=== PATIENT | female | born 1970 | race African-American/Black ===

== ENCOUNTER 2016-09-10 05:54 | Emergency (ER) | payer OTHER ==
[~2016-09-10] VITALS: Ht 162.6 cm; Wt 69.9 kg
[2016-09-10 06:03] VITALS: BP 99/74
== END 2016-09-10 08:05 | disposition home or self-care (01) ==
LOC: ER 05:57
DX: S02.2XXA Fracture of nasal bones, initial encounter for closed fracture (principal); S49.92XA Unspecified injury of left shoulder and upper arm, initial encounter; D64.9 Anemia, unspecified; V43.52XA Car driver injured in collision with other type car in traffic accident, initial encounter; Y93.89 Activity, other specified; Y92.488 Other paved roadways as the place of occurrence of the external cause; Y99.8 Other external cause status
CPT/HCPCS: 70160-TC; A4606; Z7610

== ENCOUNTER 2016-09-18 08:10 | Emergency (ER) | payer OTHER ==
[~2016-09-18] VITALS: Ht 162.6 cm; Wt 69.9 kg
[2016-09-18 08:18] VITALS: BP 19/99
[2016-09-18] MEDS ORDERED: IBUPROFEN 600 MG TABLET PO ONE ×2 (08:29→08:30)
== END 2016-09-18 09:21 | disposition home or self-care (01) ==
LOC: ER 08:15
DX: M54.2 Cervicalgia (principal); M25.512 Pain in left shoulder; D64.9 Anemia, unspecified; F17.200 Nicotine dependence, unspecified, uncomplicated
CPT/HCPCS: A4606; Z7610

== ENCOUNTER 2016-10-07 08:21 | Emergency (ER) | payer OTHER ==
[~2016-10-07] VITALS: Ht 162.6 cm; Wt 65.8 kg
[2016-10-07 08:21] VITALS: BP 121/79
== END 2016-10-07 09:33 | disposition home or self-care (01) ==
LOC: ER 08:22
DX: M25.512 Pain in left shoulder (principal); D64.9 Anemia, unspecified; F17.200 Nicotine dependence, unspecified, uncomplicated
CPT/HCPCS: 73030-TC; A4606; Z7610

== ENCOUNTER 2016-12-20 09:41 | Emergency (ER) | payer OTHER ==
[~2016-12-20] VITALS: Ht 162.6 cm; Wt 65.8 kg
[2016-12-20 10:33] LABS: BASOPHILS # (AUTO) 0.1 /CMM (0.0-0.2); EOSINOPHILS % (AUTO) 0.3 % (0.0-6.0); HEMATOCRIT 33 % (33-45); HEMOGLOBIN 11.2 g/dL (11.5-14.8); LYMPHOCYTES # (AUTO) 1.7 /CMM (0.8-4.8); MEAN CORPUSCULAR HEMOGLOBIN 31 PG (26.0-33.0); MEAN CORPUSCULAR HGB CONC 34 g/dl (31.0-36.0); MEAN CORPUSCULAR VOLUME 89 fL (82-100); MONOCYTES # (AUTO) 0.2 /CMM (0.1-1.30); MONOCYTES % (AUTO) 3.8 % (2.0-12.0); NEUTROPHILS # (AUTO) 3.6 /CMM (1.8-8.9); NEUTROPHILS % (AUTO) 64.9 % (43.0-81.0); PLATELET COUNT (AUTO) 298 /CMM (150-450); RDW COEFFICIENT OF VARIATION 15.1 (11.5-15.0); RED BLOOD CELL COUNT(AUTO) 3.65 MIL/uL (4.0-5.2); WHITE BLOOD COUNT (AUTO) 5.6 K/uL (4.3-11.0)
[2016-12-20 10:36] LABS: CALCIUM, SERUM 8.9 mg/dL (8.5-10.1); CARBON DIOXIDE 27 mmol/L (21-32); CHLORIDE 107 mmol/L (98-107); CREATININE 0.9 mg/dL (0.6-1.3); GLUCOSE 88 mg/dL (74-106); POTASSIUM 4.2 mmol/L (3.5-5.1); SODIUM SERUM 139 mmol/L (136-145); UREA NITROGEN, BLOOD 6 mg/dL (7-18)
[2016-12-20 10:44] LABS: TROPONIN I < 0.017 ng/mL (0.00-0.056)
--- NOTE | 2016-12-20 11:11 | NUR ---
REPORT RECEIVED FROM JAN SALAZAR FOR [facility]ANE. NAD NOTED. RESTING COMFORTABLY.
--- NOTE | 2016-12-20 11:28 | NUR ---
IV removed. Catheter intact and site benign. Pressure and 4x4 applied to site. No bleeding noted.
--- NOTE | 2016-12-20 11:39 | NUR ---
Patient discharged to home in stable condition. Written and verbal after care instructions given by MD. Patient verbalizes understanding of instruction.
[2016-12-20 11:40] VITALS: BP 103/77
== END 2016-12-20 11:41 | disposition home or self-care (01) ==
LOC: ER 09:42
DX: R07.89 Other chest pain (principal); N63 Unspecified lump in breast; F17.200 Nicotine dependence, unspecified, uncomplicated; D64.9 Anemia, unspecified
CPT/HCPCS: 36415; 71010-TC; 80048-TC; 84484-TC; 85025-TC; A4606; Z7610

== ENCOUNTER 2017-01-21 06:31 | Emergency (ER) | payer OTHER ==
[~2017-01-21] VITALS: Ht 162.6 cm; Wt 65.8 kg
--- NOTE | 2017-01-21 07:10 | NUR ---
BIBSELF C/O MID TO LOW BACK PAIN S/P CARRYING A HEAVY BOX YESTERDAY. TOOK ALEVE NO RELIEF. GOWNED PT AWAITING MD ORDER
[2017-01-21] MEDS ORDERED: NAPROXEN 250 MG TABLET ONE (07:17)
--- NOTE | 2017-01-21 07:19 | NUR ---
VERBAL ORDER FROM DR THOMPSON NAPROXEN 500 PO X1
--- NOTE | 2017-01-21 07:29 | NUR ---
Patient discharged to home in stable condition. Written and verbal after care instructions given. Patient verbalizes understanding of instruction.
[2017-01-21 07:30] VITALS: BP 110/75
[2017-01-21] MEDS ORDERED: NAPROXEN 250 MG TABLET PO ONE (07:30)
== END 2017-01-21 07:31 | disposition home or self-care (01) ==
LOC: ER 06:31
DX: S39.012A Strain of muscle, fascia and tendon of lower back, initial encounter (principal); D64.9 Anemia, unspecified; F17.200 Nicotine dependence, unspecified, uncomplicated; Z91.011 Allergy to milk products; Z72.0 Tobacco use; Z88.8 Allergy status to other drugs, medicaments and biological substances; X58.XXXA Exposure to other specified factors, initial encounter; Y93.89 Activity, other specified; Y92.89 Other specified places as the place of occurrence of the external cause; Y99.9 Unspecified external cause status
CPT/HCPCS: 99282; A4606; Z7610

== ENCOUNTER 2017-03-29 06:51 | Emergency (ER) | payer OTHER ==
[~2017-03-29] VITALS: Ht 162.6 cm; Wt 63.5 kg
[2017-03-29 07:00] VITALS: BP 119/76
== END 2017-03-29 07:46 | disposition home or self-care (01) ==
LOC: ER 06:51
DX: M54.2 Cervicalgia (principal); M54.6 Pain in thoracic spine; Z88.5 Allergy status to narcotic agent; F17.200 Nicotine dependence, unspecified, uncomplicated; V43.62XA Car passenger injured in collision with other type car in traffic accident, initial encounter; Y93.89 Activity, other specified; Y92.488 Other paved roadways as the place of occurrence of the external cause; Y99.8 Other external cause status
CPT/HCPCS: A4606; Q0162; Z7610

== ENCOUNTER 2017-07-09 07:16 | Emergency (ER) | payer OTHER ==
[~2017-07-09] VITALS: Ht 162.6 cm; Wt 66.7 kg
[2017-07-09 07:19] VITALS: BP 102/71
[2017-07-09] MEDS ORDERED: NAPROXEN 250 MG TABLET ONE (08:19)
[2017-07-09] MEDS: NAPROXEN 500 MG TABLET PO SCH (08:26)
== END 2017-07-09 08:28 | disposition home or self-care (01) ==
LOC: ER 07:17
DX: M19.071 Primary osteoarthritis, right ankle and foot (principal); M79.671 Pain in right foot; D64.9 Anemia, unspecified; G89.29 Other chronic pain; F10.10 Alcohol abuse, uncomplicated; F17.200 Nicotine dependence, unspecified, uncomplicated; Z88.5 Allergy status to narcotic agent; Z88.6 Allergy status to analgesic agent; Z91.011 Allergy to milk products
CPT/HCPCS: 73630; 99284; A4606; Z7610

== ENCOUNTER 2017-11-13 05:36 | Emergency (ER) | payer OTHER ==
[~2017-11-13] VITALS: Ht 162.6 cm; Wt 65.8 kg
[2017-11-13 05:42] VITALS: BP 116/77
== END 2017-11-13 06:24 | disposition home or self-care (01) ==
LOC: ER 05:38
DX: M54.12 Radiculopathy, cervical region (principal); G89.29 Other chronic pain; D64.9 Anemia, unspecified; F17.200 Nicotine dependence, unspecified, uncomplicated; Z88.5 Allergy status to narcotic agent; Z88.6 Allergy status to analgesic agent; Z91.011 Allergy to milk products; Z91.012 Allergy to eggs
CPT/HCPCS: 73030-TC; A4606; Z7610

== ENCOUNTER 2018-05-15 04:28 | Emergency (ER) | payer OTHER ==
[~2018-05-15] VITALS: Ht 162.6 cm; Wt 69.9 kg
[2018-05-15 04:28] VITALS: BP 124/69
[2018-05-15] MEDS ORDERED: NAPROXEN 250 MG TABLET ONE (05:17)
[2018-05-15] MEDS ORDERED: NAPROXEN 250 MG TABLET PO ONE (05:30)
== END 2018-05-15 05:45 | disposition home or self-care (01) ==
LOC: ER 04:28
DX: M25.511 Pain in right shoulder (principal); D64.9 Anemia, unspecified; G89.29 Other chronic pain; F17.200 Nicotine dependence, unspecified, uncomplicated; Z88.5 Allergy status to narcotic agent; Z88.6 Allergy status to analgesic agent; Z88.8 Allergy status to other drugs, medicaments and biological substances; V43.52XA Car driver injured in collision with other type car in traffic accident, initial encounter; Y93.89 Activity, other specified; Y92.413 State road as the place of occurrence of the external cause; Y99.8 Other external cause status
CPT/HCPCS: 73030-TC; A4606; Z7610

== ENCOUNTER 2018-10-19 21:30 | Emergency (ER) | payer OTHER ==
[~2018-10-19] VITALS: Ht 162.6 cm; Wt 68.0 kg
[2018-10-19 21:39] VITALS: BP 164/79
[2018-10-19] MEDS ORDERED: LORAZEPAM 0.5 MG TABLET ONE (22:40)
[2018-10-19] MEDS ORDERED: LORAZEPAM 1 MG TABLET PO ONE (23:00)
== END 2018-10-19 22:50 | disposition home or self-care (01) ==
LOC: ER 21:35
DX: F41.9 Anxiety disorder, unspecified (principal); F17.200 Nicotine dependence, unspecified, uncomplicated; F20.9 Schizophrenia, unspecified; G89.29 Other chronic pain; M54.5 Low back pain; F39 Unspecified mood [affective] disorder; G62.9 Polyneuropathy, unspecified; F10.10 Alcohol abuse, uncomplicated; Y90.9 Presence of alcohol in blood, level not specified; Z88.5 Allergy status to narcotic agent; Z88.6 Allergy status to analgesic agent; Z91.011 Allergy to milk products

== ENCOUNTER 2019-05-20 14:48 | Emergency (ER) | payer OTHER ==
[~2019-05-20] VITALS: Ht 162.6 cm; Wt 65.3 kg
[2019-05-20] MEDS ORDERED: TRAMADOL HCL 50 MG TABLET ONE (15:29)
[2019-05-20] MEDS ORDERED: TRAMADOL HCL 50 MG TABLET PO ONE (15:30)
--- NOTE | 2019-05-20 15:37 | NUR ---
[id number], IN CUSTODY C/O BACK PAIN WHILE IN CUSTODY. NO HEAD INJURY ENDOSED, SLAMMED HERSELF TO THE WALL. ON ROOM AIR, BREATHING EVENLY AND UNLABORED. CONNECTED TO THE MONITOR AND PULSE OX. WILL CONTINUE TO MONITOR ACCORDINGLY.
--- NOTE | 2019-05-20 16:57 | NUR ---
patient asleep, and in no distress. [employer] at bedside
[2019-05-20 17:33] VITALS: BP 115/64
--- NOTE | 2019-05-20 17:35 | NUR ---
patient left in custody accompanied by [employer] in no distress. Medically cleared.
== END 2019-05-20 17:35 ==
LOC: ER 15:00
DX: S39.012A Strain of muscle, fascia and tendon of lower back, initial encounter (principal); M25.512 Pain in left shoulder; G89.29 Other chronic pain; F20.9 Schizophrenia, unspecified; F10.10 Alcohol abuse, uncomplicated; F17.200 Nicotine dependence, unspecified, uncomplicated; Y90.9 Presence of alcohol in blood, level not specified; Z88.5 Allergy status to narcotic agent; Z88.6 Allergy status to analgesic agent; Z91.011 Allergy to milk products; Z02.89 Encounter for other administrative examinations; W18.09XA Striking against other object with subsequent fall, initial encounter; Y93.89 Activity, other specified; Y92.89 Other specified places as the place of occurrence of the external cause; Y99.8 Other external cause status
CPT/HCPCS: 72100-TC; 72170-TC

== ENCOUNTER 2025-04-15 23:42 | Emergency (ER) | payer OTHER | END 2025-04-16 00:12 | disposition left against medical advice (07) | LOC: ER 23:47 | DX: J18.9 Pneumonia, unspecified organism (principal); Z53.21 Procedure and treatment not carried out due to patient leaving prior to being seen by health care provider ==